=== PATIENT | female | born 1945 | race Caucasian/White ===

== ENCOUNTER 2016-12-04 20:11 | Emergency (ER) | payer MEDICARE ==
[~2016-12-04 20:11] MED LIST: ASA5GR PO; CHEMOTHERAPY IV; CLARIT10 PO; COZAAR100 MG PO; ESTRACE1 MG PO; IVVIBRA; K-TABS10 MEQ PO; KLOR-CON 1010 MEQ PO; L20 PO; MAGOX4 PO; NORV5 PO; PLEND5 PO; PROAIR HFA INH; PROVENTSOL INH; TOPXL100 PO; ZOCOR80 MG PO; ZOFRAN8 PO
[2017-03-27] MEDS ORDERED: LOP100 PO (14:45)
[2017-03-27] MEDS ORDERED: ESTRACE1 MG PO (14:47)
[2017-03-27] MEDS ORDERED: NAMENDA5 PO (14:47)
== END 2016-12-04 20:50 | disposition home or self-care (01) ==
LOC: ER 20:11
DX: L30.9 Dermatitis, unspecified (principal); F17.200 Nicotine dependence, unspecified, uncomplicated; Z88.5 Allergy status to narcotic agent; Z79.899 Other long term (current) drug therapy
CPT/HCPCS: 99283